=== PATIENT | female | born 1940 | race Caucasian/White ===

== ENCOUNTER 2023-10-11 14:45 | Observation (INO) | payer OTHER ==
[2023-10-11 16:18] LABS: HEMATOCRIT 42.8 % (32.4-45.2); HEMOGLOBIN 14.3 GM/dL (10.7-15.3); MCH 32.6 pg (25.7-33.7); MCHC 33.3 g/dl (32.0-36.0); MEAN CELL VOLUME 97.9 fl (80-96); MEAN PLT VOLUME 11.5 fl (7.5-11.1); PLATELET COUNT 131 10^3/uL (134-434); RBC 4.37 M/mm3 (3.60-5.2); RDW 13.7 % (11.6-15.6); WHITE BLOOD COUNT 8.6 K/mm3 (4.0-10.0)
[2023-10-11 16:34] LABS: POTASSIUM 4.4 mmol/L (3.5-5.1)
[2023-10-11 16:35] LABS: CALCIUM 9.3 mg/dL (8.5-10.1)
[2023-10-11 16:36] LABS: BLOOD UREA NITROGEN 14.4 mg/dL (7-18)
[2023-10-11 16:37] LABS: URINE APPEARANCE CLEAR; URINE BILIRUBIN NEGATIVE (NEGATIVE); URINE COLOR YELLOW; URINE GLUCOSE (UA) NEGATIVE (NEGATIVE); URINE KETONE NEGATIVE (NEGATIVE); URINE LEUK ESTERASE NEGATIVE (NEGATIVE); URINE NITRITE NEGATIVE (NEGATIVE); URINE PROTEIN NEGATIVE (NEGATIVE)
[2023-10-11 16:39] LABS: CREATININE 1.1 mg/dL (0.55-1.3)
[2023-10-12 03:09] VITALS: BMI 30.8
[2023-10-12 06:09] VITALS: RESP 18
[2023-10-12 06:33] LABS: BASO % 0.5 % (0-2.0); EOS % 2.1 % (0-4.5); HEMATOCRIT 40.5 % (32.4-45.2); HEMOGLOBIN 13.6 GM/dL (10.7-15.3); LYMPH % 38.6 % (8-40); MCH 32.8 pg (25.7-33.7); MCHC 33.6 g/dl (32.0-36.0); MEAN CELL VOLUME 97.7 fl (80-96); MEAN PLT VOLUME 11.7 fl (7.5-11.1); MONO % 9.5 % (3.8-10.2); NEUT % 49.3 % (42.8-82.8); PLATELET COUNT 126 10^3/uL (134-434); RBC 4.15 M/mm3 (3.60-5.2); RDW 13.2 % (11.6-15.6); WHITE BLOOD COUNT 7.1 K/mm3 (4.0-10.0)
[2023-10-12 06:55] LABS: POTASSIUM 3.8 mmol/L (3.5-5.1)
[2023-10-12 06:56] LABS: CALCIUM 9.1 mg/dL (8.5-10.1)
[2023-10-12 07:00] LABS: CREATININE 0.7 mg/dL (0.55-1.3)
[2023-10-12] MEDS: LOSARTAN POTASSIUM 50 MG TABLET PO SCH (09:12)
[2023-10-12] MEDS: ATORVASTATIN CA 40 MG TABLET (FP) PO SCH (22:38)
[2023-10-13] MEDS: LEVOTHYROXINE NA 25 MCG TABLET (FP) PO SCH (06:03)
[2023-10-13] MEDS: POLYETHYLENE GLYCOL (HEALTHYLAX) 3350 17 GM PACKET PO SCH (14:14)
[2023-10-13 14:51] VITALS: BP 140/68; PULSE 64; TEMP 97.9
== END 2023-10-13 20:11 | disposition home or self-care (01) ==
LOC: JER 14:45 → JERBED 18:51 → J4S 10-12 02:41
PROVIDERS: ADMIT Internal Medicine; ATTEND Family Medicine
DX: R42 Dizziness and giddiness (principal); R55 Syncope and collapse; E03.9 Hypothyroidism, unspecified; E78.5 Hyperlipidemia, unspecified; I10 Essential (primary) hypertension
CPT/HCPCS: 36415; 70450-TC; 71045-TC-FY; 80048; 81003; 82607; 83036; 83880; 84439; 84443; 84484; 85025; 85027; 86780; 93005; 93010; 93306-TC; 93880-TC; 97116-GP; 97161-GP; 99285-25; G0378